=== PATIENT | female | born 1995 | race Caucasian/White ===

== ENCOUNTER 2018-03-18 19:34 | Emergency (ER) | payer OTHER ==
[2018-03-18 19:45] VITALS: BP 109/84
--- NOTE | 2018-03-18 19:58 | EDPHY ---
H & P Stated Complaint: Unable to sleep for 3 days Time Seen by Provider: 03/18/18 19:54 HPI/ROS: HPI: This is a 23-year-old female who presents with Chief Complaint: Unable to sleep for 3 days Location: psych Quality: Unable to get to sleep Duration: 3 days Signs and Symptoms: no shortness of breath at rest, no shortness of breath on exertion, no cough, no chest pain, no palpitations, no lower extremity edema, no wheezing, no orthopnea, no paroxysmal nocturnal dyspnea, no fever, no injury/ trauma, no hemoptysis, no carpal pedal spasms Timing: constant Severity: Severe Context: Patient moved to the area last Thursday for a new job for which she is extremely excited about but has noted that she has not been able to sleep at all for the last 3 days. She reports that she is unable to get to sleep or stay asleep. She denies any prior history of depression, anxiety, suicidal ideation, homicidal ideation. She has a strong friend and family support system. She reports that she is drinking coffee during the day to stay awake while she is at work. She she has tried taking melatonin and B12 supplementation. She has tried meditating and exercising but none of these have worked. Modifying Factors: Comment: ROS: see HPI Constitutional: No fever, no chills, no weight loss Eyes: No blurred vision Respiratory: No shortness of breath, no cough Cardiovascular: No chest pain, no palpitations, no lower extremity edema Gastrointestinal: No nausea, no vomiting, no diarrhea Genitourinary: No dysuria Extremities: No myalgias Neurologic: No weakness, no numbness Skin: No rashes Hematologic: No bruising, no bleeding MEDICAL/SURGICAL/SOCIAL HISTORY: Medical history: Generally healthy. Does not take any regular medications. Surgical history: Denies Social history: Employed. CONSTITUTIONAL: Extremely well-appearing polite and cooperative young adult white female, awake and alert, no obvious distress HEENT: Atraumatic and normocephalic, PERRL, EOMI. Nares patent; no rhinorrhea; no nasal mucosal edema. Tympanic membranes clear. Oropharynx clear, no exudate and moist pink mucosa. Airway patent. No lymphadenopathy. No meningismus. Cardiovascular: Normal S1/S2, regular rate, regular rhythm, without murmur rub or gallop. PULMONARY/CHEST: Symmetrical and nontender. Clear to auscultation bilaterally. Good air movement. No accessory muscle usage. ABDOMEN: Soft, nondistended, nontender, no rebound, no guarding, no peritoneal signs, no masses or organomegaly. No CVAT. EXTREMITIES: 2/2 pulses, strength 5/5, no deformities, no clubbing, no cyanosis or edema. NEUROLOGICAL: no focal neuro deficits. GCS 15. SKIN: Warm and dry, no erythema. no rash. Good capillary refill. PSYCH: Good eye contact, no flight of ideas, organized thought process, good insight and judgment, no auditory and visual command hallucinations, no suicidal ideation with a plan, no homicidal ideation, not paranoid Source: Patient Exam Limitations: No limitations - Personal History LMP (Females 10-55): Over 28 Days Ago Current Tetanus/Diphtheria Vaccine: Yes Current Tetanus Diphtheria and Acellular Pertussis (TDAP): Yes - Medical/Surgical History Hx Asthma: No Hx Chronic Respiratory Disease: No Hx Diabetes: No Hx Cardiac Disease: No Hx Renal Disease: No Hx Cirrhosis: No Hx Alcoholism: No Hx HIV/AIDS: No Hx Splenectomy or Spleen Trauma: No Other PMH: denies - Social History Smoking Status: Never smoked Constitutional: Initial Vital Signs Temperature (C) 37.0 C 03/18/18 19:42 Heart Rate 67 03/18/18 19:42 Respiratory Rate 16 03/18/18 19:42 Blood Pressure 109/84 H 03/18/18 19:42 O2 Sat (%) 98 03/18/18 19:42 O2 Delivery Mode Room Air Allergies/Adverse Reactions: No Known Allergies Allergy (Unverified 03/18/18 19:45) Home Medications: Medication Instructions Recorded B-12 03/18/18 Fish Oil [place]-3 Softgel 03/18/18 [place] 03/18/18 Triazolam [Halcion 0.25MG (*)] 0.25 mg PO HS #10 tab 03/18/18 Medical Decision Making ED Course/Re-evaluation: Vital signs reviewed and stable upon arrival. Does not meet criteria for M1 hold or Detainer. Given prescription for Halcion per attending with primary care follow-up. This patient was seen under the supervision of my secondary supervising physician. I evaluated care for this patient independently. Discussed this patient with Dr. Chávez who did not see the patient. Differential Diagnosis: Differential diagnosis includes but is not limited to chemical induced insomnia , psychological induced insomnia. Departure - Departure Disposition: Home, Routine, Self-Care Clinical Impression: Insomnia Qualifiers: Insomnia type: unspecified Qualified Code(s): G47.00 - Insomnia, unspecified Condition: Good Instructions: Insomnia (ED) Additional Instructions: Please stop using all caffeine products until your sleep habits have regulated. Take Halcion 30 minutes before bed as needed for insomnia. Establish care with a primary care provider in the area. Referrals: Lindsey Bajwa MD [[facility]] - As per Instructions Prescriptions: Triazolam [Halcion 0.25MG (*)] 0.25 mg PO HS #10 tab
== END 2018-03-18 20:20 | disposition home or self-care (01) ==
DX: G47.00 Insomnia, unspecified (principal)